=== PATIENT | male | born 1995 | race African-American/Black ===

== ENCOUNTER 2024-06-20 14:00 | Emergency (ER) | payer OTHER ==
--- NOTE | 2024-06-20 14:11 | EDPHYS ---
[facility] Name: Adan Kearns Age: 28 yrs Sex: Male : 1995 Arrival Date: 06/20/2024 Time: 14:00 Bed 8 Private MD: PRUDENCIO Physician Marlon Briseno HPI: 06/20 14:05 This 28 yrs old Black Male presents to ER via Law Enforcement with complaints of Hand mode Injury. 14:05 The patient or guardian reports decreased range of motion, injury, pain, a puncture mode wound, swelling, tenderness. The complaints affect the MCP of left middle finger and MCP of left index finger. Context: The problem was sustained at a tdc. Onset: The symptoms/episode began/occurred last night. Modifying factors: The symptoms are alleviated by holding still, pressure to area, the symptoms are aggravated by movement, dependent position. Associated signs and symptoms: The patient has no apparent associated signs or symptoms. Severity of symptoms: At their worst the symptoms were moderate, in the emergency department the symptoms are actually worse. The patient has not experienced similar symptoms in the past. Historical: - Allergies: 14:47 No Known Allergies; ko1 - Home Meds: 14:47 None [Active]; ko1 - PMHx: 14:47 None; ko1 - PSHx: 14:47 None; ko1 - Immunization history:: Adult Immunizations up to date. - Infectious Disease History:: Denies. - Social history:: Smoking status: Patient reports the use of cigarette tobacco products, smokes one pack cigarettes per day. - Family history:: not pertinent. ROS: 14:05 Constitutional: Negative for fever, chills, and weight loss, Eyes: Negative for injury, mode pain, redness, and discharge, ENT: Negative for injury, pain, and discharge, Neck: Negative for injury, pain, and swelling, Cardiovascular: Negative for chest pain, palpitations, and edema, Respiratory: Negative for shortness of breath, cough, wheezing, and pleuritic chest pain, Abdomen/GI: Negative for abdominal pain, nausea, vomiting, diarrhea, and constipation, Back: Negative for injury and pain, : Negative for injury, bleeding, discharge, and swelling, Skin: Negative for injury, rash, and discoloration, Neuro: Negative for headache, weakness, numbness, tingling, and seizure, Psych: Negative for depression, anxiety, suicide ideation, homicidal ideation, and hallucinations, Allergy/Immunology: Negative for hives, rash, and allergies, Endocrine: Negative for neck swelling, polydipsia, polyuria, polyphagia, and marked weight changes, Hematologic/Lymphatic: Negative for swollen nodes, abnormal bleeding, and unusual bruising, 14:05 MS/extremity: Positive for decreased range of motion, erythema, pain, swelling, tenderness, of the left hand, Exam: 14:05 Constitutional: This is a well developed, well nourished patient who is awake, alert, mode and in no acute distress. Head/Face: Normocephalic, atraumatic. Eyes: Pupils equal round and reactive to light, extra-ocular motions intact. Lids and lashes normal. Conjunctiva and sclera are non-icteric and not injected. Cornea within normal limits. Periorbital areas with no swelling, redness, or edema. ENT: Nares patent. No nasal discharge, no septal abnormalities noted. Tympanic membranes are normal and external auditory canals are clear. Oropharynx with no redness, swelling, or masses, exudates, or evidence of obstruction, uvula midline. Mucous membranes moist. Neck: Trachea midline, no thyromegaly or masses palpated, and no cervical lymphadenopathy. Supple, full range of motion without nuchal rigidity, or vertebral point tenderness. No Meningismus. Chest/axilla: Normal chest wall appearance and motion. Nontender with no deformity. No lesions are appreciated. Cardiovascular: Regular rate and rhythm with a normal S1 and S2. No gallops, murmurs, or rubs. Normal PMI, no JVD. No pulse deficits. Respiratory: Lungs have equal breath sounds bilaterally, clear to auscultation and percussion. No rales, rhonchi or wheezes noted. No increased work of breathing, no retractions or nasal flaring. Abdomen/GI: Soft, non-tender, with normal bowel sounds. No distension or tympany. No guarding or rebound. No evidence of tenderness throughout. Back: No spinal tenderness. No costovertebral tenderness. Full range of motion. Male : Normal genitalia with no discharge or lesions. Neuro: Awake and alert, GCS 15, oriented to person, place, time, and situation. Cranial nerves II-XII grossly intact. Motor strength 5/5 in all extremities. Sensory grossly intact. Cerebellar exam normal. Normal gait. Psych: Awake, alert, with orientation to person, place and time. Behavior, mood, and affect are within normal limits. 14:05 Skin: cellulitis, that is moderate, on the left hand, induration, that is mild is noted, Vital Signs: 14:02 BP 145 / 90; Pulse 51; Resp 16; Pulse Ox 98% ; ko1 14:02 BP 145 / 89; Pulse 55; Resp 15; Pulse Ox 99% ; ko1 15:57 BP 130 / 80; Pulse 52; Resp 14; Pulse Ox 99% ; ko1 MDM: 14:02 Medical Screening Exam initiated mode 14:02 Medical Screening Exam initiated mode 14:07 Differential diagnosis: closed fracture, contusion, abrasion, tendonitis. Data mode reviewed: vital signs, nurses notes, lab test result(s), radiologic studies, plain films. Consideration of Admission/Observation Escalation of care including admission/observation considered. I considered the following discharge prescriptions or medication management in the emergency department Medications were administered in the Emergency Department. See MAR. Independent interpretation of the following test(s) in the Emergency Department X-Ray: My interpretation is left hand, no fx no fb. Test considered but Not performed: CT: no ct. Historians other than the Patient: pt well informed. Care significantly affected by the following chronic conditions: none. Counseling: I had a detailed discussion with the patient and/or guardian regarding the historical points, exam findings, and any diagnostic results supporting the discharge/admit diagnosis, lab results, radiology results, the need to transfer to another facility, for higher level of care, [facility] does not immediately have the required specialist. 06/20 14:04 Order name: CBC with Diff; Complete Time: 15:46 [facility] 06/20 14:04 Order name: Comprehensive Metabolic Panel; Complete Time: 15:46 [facility] 06/20 14:04 Order name: PT-INR; Complete Time: 15:46 [facility] 06/20 14:04 Order name: Hand Left 3 View XRAY; Complete Time: 15:46 [facility] 06/20 14:04 Order name: NPO; Complete Time: 14:10 [facility] 06/20 14:05 Order name: Wound Care; Complete Time: 14:36 [facility] 06/20 14:18 Order name: IV Start; Complete Time: 14:18 jl7 Administered Medications: 14:35 Not Given (Patient Refused): boostrix tdap0.5 ml IM once; as a single dose ko1 14:35 Drug: NS 0.9% IV 1000 ml IV at 1000 ml once; to be given as a bolus over 60 minutes ko1 Route: IV; Rate: 1000 ml; Site: right antecubital; 14:36 Drug: Ketorolac IVP 30 mg IVP once Route: IVP; Site: right antecubital; ko1 14:51 Follow up: Response: No adverse reaction ko1 14:36 Drug: Ondansetron IVP 4 mg IVP once; over 2 minutes Route: IVP; Site: right antecubital;ko1 14:51 Follow up: Response: No adverse reaction ko1 14:36 Drug: Mupirocin Topical Ointment 2 % 1 application Topical once Route: Topical; Site: ko1 affected area; 15:05 Follow up: Response: No adverse reaction ko1 14:37 Drug: Ampicillin-Sulbactam Sodium IVPB 3 grams IVPB once over 30 mins; (mix in 100 mL ko1 NS) Route: IVPB; Infused Over: 30 mins; Site: right antecubital; 15:05 Follow up: Response: No adverse reaction; IV Status: Completed infusion; IV Intake: ko1 100ml 14:37 Drug: morphine IVP or IV 4 mg IVP once over 4 mins Route: IVP; Infused Over: 4 mins; ko1 Site: right antecubital; 14:52 Follow up: Response: No adverse reaction; Pain is decreased ko1 Disposition Summary: 06/20/24 14:10 Transfer Ordered Notes: Transfer Location: [facility]-System mode Reason: Higher level of care mode Condition: Stable mode Problem: new mode Symptoms: have improved mode Accepting Physician: to [facility] jessi(06/20/24 18:03) jl7 Diagnosis - Laceration without foreign body of left hand - TENOSYNOVITIS mode - Puncture wound without foreign body of left hand mode - Cellulitis of other parts of limb - LEFT HAND mode Forms: - Medication Reconciliation Form mode - SBAR form mode Signatures: Dispatcher [employer] EDMarlon Gallardo MD MD cha Leal, Jahala, RN RN jl7 Lisa Mota RN RN ko1 Corrections: (The following items were deleted from the chart) 18:03 14:10 to [facility] , [facility] jl7
--- NOTE | 2024-06-20 14:11 | ER ---
Nurse's Notes [facility] Name: Adan Kearns Age: 28 yrs Sex: Male : 1995 Arrival Date: 06/20/2024 Time: 14:00 Bed 8 Private MD: Diagnosis: Laceration without foreign body of left hand-TENOSYNOVITIS;Puncture wound without foreign body of left hand;Cellulitis of other parts of limb-LEFT HAND Presentation: 06/20 14:02 Chief complaint: Patient states: left hand injured from "horseplay" in [facility]. ko1 Coronavirus screen: At this time, the client does not indicate any symptoms associated with coronavirus-19. Ebola Screen: No symptoms or risks identified at this time. Initial Sepsis Screen: Does the patient meet any 2 criteria? No. Patient's initial sepsis screen is negative. Does the patient have a suspected source of infection? No. Patient's initial sepsis screen is negative. Risk Assessment: Do you want to hurt yourself or someone else? Patient reports no desire to harm self or others. Onset of symptoms was June 20, 2024. Care prior to arrival: None. 14:02 Method Of Arrival: Law Enforcement: [place] [employer] ko1 14:02 Acuity: SHARA 3 ko1 Triage Assessment: 14:02 General: Appears in no apparent distress. Behavior is calm, cooperative, appropriate ko1 for age. Pain: Complains of pain in left hand. EENT: No deficits noted. Neuro: No deficits noted. Cardiovascular: No deficits noted. Respiratory: No deficits noted. GI: No deficits noted. : No deficits noted. Derm: Wound noted left hand Bruising that is on left hand. Musculoskeletal: Reports pain in left hand and MCP of left index finger and MCP of left middle finger. Injury Description: Abrasion Bruise. Historical: - Allergies: 14:47 No Known Allergies; ko1 - Home Meds: 14:47 None [Active]; ko1 - PMHx: 14:47 None; ko1 - PSHx: 14:47 None; ko1 - Immunization history:: Adult Immunizations up to date. - Infectious Disease History:: Denies. - Social history:: Smoking status: Patient reports the use of cigarette tobacco products, smokes one pack cigarettes per day. - Family history:: not pertinent. Screenin:02 [facility] ED Fall Risk Assessment (Adult) History of falling in the last 3 months, ko1 including since admission No falls in past 3 months (0 pts) Confusion or Disorientation No (0 pts) Intoxicated or Sedated No (0 pts) Impaired Gait No (0 pts) Mobility Assist Device Used No (0 pt) Altered Elimination No (0 pt) Score/Fall Risk Level 0 - 2 = Low Risk Oriented to surroundings, Maintained a safe environment, Educated pt \\T\\ family on fall prevention, incl call for assistance when getting out of bed, Assessed \\T\\ reinforced patient's understanding of fall precautions, Provided non-skid footwear, Hourly rounding (assess needs \\T\\ fall precautionary measures) done. Abuse screen: Denies threats or abuse. Denies injuries from another. Nutritional screening: No deficits noted. Tuberculosis screening: No symptoms or risk factors identified. Assessment: 14:02 Reassessment: see triage note. ko1 15:25 Reassessment: attempted to call report, no answer. ko1 15:25 Reassessment: attempted to call report, no answer [phone]. ko1 15:40 Reassessment: attempted to call report a third time with no answer, will call [facility] transfer center. 15:41 Reassessment: transfer center gave me a different number to call for ER. [phone]. ko1 15:45 Reassessment: no answer. ko1 15:48 Reassessment: no answer, call failed. ko1 Vital Signs: 14:02 BP 145 / 90; Pulse 51; Resp 16; Pulse Ox 98% ; ko1 14:02 BP 145 / 89; Pulse 55; Resp 15; Pulse Ox 99% ; ko1 15:57 BP 130 / 80; Pulse 52; Resp 14; Pulse Ox 99% ; ko1 ED Course: 14:02 Patient arrived in ED. [facility] 14:02 Lisa Mota RN is Primary Nurse. ko1 14:02 Marlon Briseno MD is Attending Physician. [facility] 14:02 Arm band placed on right wrist. Patient placed in an exam room, on a stretcher, on ko1 pulse oximetry, Patient notified of wait time. 14:02 Patient has correct armband on for positive identification. Bed in low position. Call ko1 light in reach. Side rails up X 1. Security at bedside. Provided Education on: meds. Pulse ox on. NIBP on. Door closed. Noise minimized. Lights dimmed. Warm blanket given. Pillow given. 14:02 No provider procedures requiring assistance completed. Wound care: to cellulitis ko1 located on left hand was cleaned with Betadine, dressed with 4X4s, bactroban, Patient tolerated well. 14:04 Triage completed. ko1 14:18 Initial lab(s) drawn, by me, sent to lab. Inserted saline lock: 20 gauge in right jl7 antecubital area, using aseptic technique. Blood collected. 14:24 1408 called [facility] Managed Care for Transfer to [facility] talked to Justyn Merrill RN. 1422 Justyn sprague with [facility] care called back and stated no beds. 14:[address] Briseno called [facility] to start transfer. sp 14:35 1428 Andrea Heath accepted to [facility] 1430 Ashley Al RN TC admin approval to the ER sp report number [phone]. 15:38 Hand Left 3 View XRAY In Process Unspecified. EDMS 17:39 Managed Care set up transport to [facility]. [facility] will transport pt to [facility] sp ER Report [phone] . Administered Medications: 14:35 Not Given (Patient Refused): boostrix tdap0.5 ml IM once; as a single dose ko1 14:35 Drug: NS 0.9% IV 1000 ml IV at 1000 ml once; to be given as a bolus over 60 minutes ko1 Route: IV; Rate: 1000 ml; Site: right antecubital; 14:36 Drug: Ketorolac IVP 30 mg IVP once Route: IVP; Site: right antecubital; ko1 14:51 Follow up: Response: No adverse reaction ko1 14:36 Drug: Ondansetron IVP 4 mg IVP once; over 2 minutes Route: IVP; Site: right antecubital;ko1 14:51 Follow up: Response: No adverse reaction ko1 14:36 Drug: Mupirocin Topical Ointment 2 % 1 application Topical once Route: Topical; Site: ko1 affected area; 15:05 Follow up: Response: No adverse reaction ko1 14:37 Drug: Ampicillin-Sulbactam Sodium IVPB 3 grams IVPB once over 30 mins; (mix in 100 mL ko1 NS) Route: IVPB; Infused Over: 30 mins; Site: right antecubital; 15:05 Follow up: Response: No adverse reaction; IV Status: Completed infusion; IV Intake: ko1 100ml 14:37 Drug: morphine IVP or IV 4 mg IVP once over 4 mins Route: IVP; Infused Over: 4 mins; ko1 Site: right antecubital; 14:52 Follow up: Response: No adverse reaction; Pain is decreased ko1 Medication: 14:02 VIS not applicable for this client. ko1 Intake: 15:05 IV: 100ml; Total: 100ml. ko1 Outcome: 14:10 ER care complete, transfer ordered by MD. coello 18:03 Patient left the ED. jl7 Signatures: Dispatcher [employer] EDMarlon Gallardo MD MD cha Pinkerton, Shawna sp Leal, Jahala RN RN jl7 Lisa Mota RN RN ko1
[2024-06-20] MEDS ORDERED: ONDANSETRON 4 MG/2 ML VIAL ONE (14:14)
[2024-06-20] MEDS ORDERED: KETOROLAC 30 MG/ML INJ ONE (14:15)
[2024-06-20] MEDS ORDERED: MUPIROCIN 2% OINT 22GM TUBE TOP ONE (14:15)
[2024-06-20] MEDS ORDERED: AMPICILLIN/SULBACTAM 3GM/VIAL ONE (14:15)
[2024-06-20] MEDS ORDERED: MORPHINE 4 MG/ML SYR ONE (14:15)
[2024-06-20] MEDS ORDERED: TDAP (DIPHTH,PERTUSS(ACELL),TET VAC) 0.5 ML VIAL IMVAC ONE (14:16)
[2024-06-20] MEDS ORDERED: NA CHLORIDE 0.9% 1,000 ML ONE (14:16)
[2024-06-20 14:25] LABS: Absolute Eosinophils 0.1 K/uL (0-0.5); Absolute Lymphocytes (CBC) 1.9 K/uL (0.7-4.9); Absolute Monocytes 0.7 K/uL (0.1-1.3); Absolute Neutrophil 4.9 K/uL (1.8-8.0); Basophils % 0.5 % (0-1.3); Eosinophils % 1.3 % (0-4.4); Lymphocytes % 24.6 % (15.3-44.8); MCH 28.5 pg (27.0-35.0); MCHC 32.6 g/dL (32.0-36.0); MCV 87.5 fL (80-100); MPV 8.6 fL (7.6-11.3); Monocytes % 9.7 % (3.3-12.3); Neutrophils % 63.9 % (41.7-73.7); Platelets 175 thou/uL (152-406); RBC Red Blood Cell Count 5.26 M/uL (4.33-5.43); Red Cell Distribution Width 13.8 % (12.1-15.2)
[2024-06-20 14:35] LABS: PT Prothrombin Time 12.9 SECONDS (9.4-12.5); Protime INR 1.16
[2024-06-20 14:43] LABS: Albumin 3.7 g/dL (3.4-5.0); Anion Gap 7.7 mEq/L (5.0-15.0); Bilirubin Total 0.7 mg/dL (0.2-1.0); Globulin 3.7 g/dL (2.3-3.5); Potassium 3.7 mEq/L (3.5-5.1); Protein, Total 7.4 g/dL (6.4-8.2)
--- NOTE | 2024-06-20 15:41 | RAD REPORT ---
EXAM: Hand Left 3 View HISTORY: PAIN COMPARISON: None FINDINGS: Bones: No acute fracture identified. Alignment:No significant malalignment. Degenerative changes:None significant. Other: n/a IMPRESSION: No evidence of acute osseous abnormality involving the imaged hand.
[2024-06-20 20:00] VITALS: BP 130/80; O2SAT 99
== END 2024-06-20 18:03 | disposition short-term general hospital (02) ==
LOC: ER 14:00
DX: S61.412A Laceration without foreign body of left hand, initial encounter (principal); S61.432A Puncture wound without foreign body of left hand, initial encounter; L03.114 Cellulitis of left upper limb; M65.942 Unspecified synovitis and tenosynovitis, left hand; F17.210 Nicotine dependence, cigarettes, uncomplicated
CPT/HCPCS: 96365; 85025; 36415; 85610; 80053; 73130; 96375; 99285; J0295; J2405; J7030